=== PATIENT | female | born 1960 | race Caucasian/White ===

== ENCOUNTER → 2018-08-18 07:47 | Outpatient (CLI) | payer OTHER, SELFPAY ==
[2018-08-18 08:13] LABS: Add Manual Diff / Slide Review NO; Basophils Percent Auto 1.1 % (0-2); Eosinophils Percent Auto 0.8 % (2-4); Hematocrit 40.8 % (36-46); Lymphocytes Percent Auto 39.9 % (25-40); Mean Corpuscular HGB Conc 34.4 % (30-36); Mean Corpuscular Hemoglobin 30.4 PG (26-34); Mean Corpuscular Volume 88.3 fL (80-100); Monocytes Percent Auto 6.8 % (3-14); Neutrophils Absolute Auto 2800 /uL (3000-5900); Neutrophils Percent Auto 51.4 % (50-75); Platelet Count 192 X10^3/uL (150-400); Red Blood Cell Count 4.62 X10^6/uL (4.0-5.2); Red Cell Distribution Width 12.2 % (11.6-14.8); White Blood Cell Count 5.4 X10^3/uL (4.5-11.0)
[2018-08-18 08:41] LABS: Creatinine Urine Random 103.1 mg/dL
[2018-08-18 08:43] LABS: Hemoglobin A1C% w Est Avg Glu 5.5 % (4.0-6.0)
[2018-08-18 08:46] LABS: Microalbumi Creatinin Ratio Ur 27.1 ug/mg CR (<30); Microalbumin Urine Random 2.8 mg/dL (0-1.6)
[2018-08-18 08:48] LABS: Alanine Aminotransferase 37 IU/L (9-52); Albumin 4.6 g/dL (3.5-5.0); Albumin Globulin Ratio 1.5 (1.0-2.8); Alkaline Phosphatase 70 U/L (38-126); Aspartate Aminotransferase 34 IU/L (14-36); BUN Creatinine Ratio 17.5 (6-22); Bilirubin Total 0.4 mg/dL (0.2-1.3); Bilirubin Unconjugated 0.2 mg/dL (0.0-1.1); Blood Urea Nitrogen 14 mg/dL (7-17); Carbon Dioxide 27 mmol/L (22-32); Chloride 103 mmol/L (98-107); Cholesterol 179 mg/dL (140-199); Estimated Glomerular Filt Rate > 60.0 mL/min (>60); Glucose 120 mg/dL (70-100); HDL Cholesterol 35 mg/dL (40-60); HEMOLYSIS < 15 (0-50); LDL Cholesterol Calculated 70 mg/dL (<100); Potassium 4.6 mmol/L (3.4-5.1); Sodium 144 mmol/L (137-145); Total Protein 7.6 g/dL (6.3-8.2); Triglycerides 369 mg/dL (35-150)
== END ==
PROVIDERS: PCP Registered Nurse; Visit Provider Registered Nurse
DX: E78.2 Mixed hyperlipidemia (principal); I10 Essential (primary) hypertension; R74.8 Abnormal levels of other serum enzymes; E66.9 Obesity, unspecified
CPT/HCPCS: 36415; 80053; 80061; 80076; 82043; 82570; 83036; 85025

== ENCOUNTER → 2019-09-04 07:45 | Outpatient (CLI) | payer OTHER, SELFPAY ==
[2019-09-04 08:41] LABS: Alanine Aminotransferase 52 IU/L (<35); Albumin 4.7 g/dL (3.5-5.0); Albumin Globulin Ratio 1.5 (1.0-2.8); Alkaline Phosphatase 69 U/L (38-126); Aspartate Aminotransferase 46 IU/L (14-36); BUN Creatinine Ratio 23.8 (6-22); Bilirubin Total 0.5 mg/dL (0.2-1.3); Blood Urea Nitrogen 19 mg/dL (7-17); Calcium 9.5 mg/dL (8.4-10.2); Carbon Dioxide 27 mmol/L (22-32); Chloride 105 mmol/L (98-107); Cholesterol 208 mg/dL (140-199); Estimated Glomerular Filt Rate > 60.0 mL/min (>60); Globulin 3.1 g/dL (1.7-4.1); Glucose 130 mg/dL (80-110); HDL Cholesterol 41 mg/dL (40-60); HEMOLYSIS 24 (0-50); LDL Cholesterol Calculated 104 mg/dL (<100); Potassium 4.8 mmol/L (3.4-5.1); Sodium 140 mmol/L (137-145); Total Protein 7.8 g/dL (6.3-8.2); Triglycerides 315 mg/dL (35-150)
[2019-09-04 08:54] LABS: Add Manual Diff / Slide Review NO; Basophils Absolute Auto 0 /uL (0-100); Basophils Percent Auto 0.8 % (0-2); Eosinophils Absolute Auto 100 /uL (0-450); Hematocrit 40.5 % (36-46); Lymphocytes Absolute Auto 2000 /uL (1100-4500); Lymphocytes Percent Auto 37.1 % (25-40); Mean Corpuscular HGB Conc 34.4 % (30-36); Mean Corpuscular Hemoglobin 30.9 PG (26-34); Mean Corpuscular Volume 89.7 fL (80-100); Monocytes Absolute Auto 400 /uL (0-900); Monocytes Percent Auto 7.1 % (3-14); Neutrophils Absolute Auto 2900 /uL (1500-7000); Platelet Count 194 X10^3/uL (150-400); Red Blood Cell Count 4.52 X10^6/uL (4.0-5.2); Red Cell Distribution Width 12.1 % (11.6-14.8); White Blood Cell Count 5.4 X10^3/uL (4.5-11.0)
[2019-09-04 10:24] LABS: Creatinine Urine Random 115.6 mg/dL
[2019-09-04 10:28] LABS: Microalbumi Creatinin Ratio Ur 53.6 ug/mg CR (<30); Microalbumin Urine Random 6.2 mg/dL (0-1.6)
== END ==
PROVIDERS: PCP Registered Nurse; Visit Provider Nurse Practitioner Family
DX: E78.5 Hyperlipidemia, unspecified (principal); I10 Essential (primary) hypertension; K76.0 Fatty (change of) liver, not elsewhere classified; R74.8 Abnormal levels of other serum enzymes
CPT/HCPCS: 36415; 80053; 80061; 82043; 82570; 85025

== ENCOUNTER → 2019-09-29 12:21 | Outpatient (CLI) | payer OTHER, SELFPAY ==
[2019-09-29 12:53] LABS: Hemoglobin A1C% w Est Avg Glu 5.3 % (4.0-6.0)
== END ==
PROVIDERS: PCP Registered Nurse; Visit Provider Nurse Practitioner Family
DX: R73.01 Impaired fasting glucose (principal)
CPT/HCPCS: 36415; 83036

== ENCOUNTER → 2021-01-15 11:16 | Outpatient (CLI) | payer OTHER, SELFPAY ==
[2021-01-15] MEDS: COVID-19 VACC #1, MRNA(MOD) 100 MCG/0.5 ML VIAL IM (11:25)
== END ==
PROVIDERS: Visit Provider Internal Medicine
DX: Z23 Encounter for immunization (principal)
CPT/HCPCS: 0011A; 91301

== ENCOUNTER → 2021-02-12 11:06 | Outpatient (CLI) | payer OTHER, SELFPAY ==
[2021-02-12] MEDS: COVID-19 VACC #2, MRNA(MOD) 100 MCG/0.5 ML VIAL IM (11:13)
== END ==
PROVIDERS: Visit Provider Internal Medicine
DX: Z23 Encounter for immunization (principal)
CPT/HCPCS: 0012A; 91301

== ENCOUNTER → 2021-03-31 08:50 | Outpatient (CLI) | payer OTHER, SELFPAY ==
[2021-03-31 10:02] LABS: Hematocrit 40.2 % (36-46); Hemoglobin 13.6 g/dL (12.0-16.0); Mean Corpuscular HGB Conc 33.8 % (30-36); Mean Corpuscular Hemoglobin 30.4 PG (26-34); Mean Corpuscular Volume 90.1 fL (80-100); Platelet Count 186 X10^3/uL (150-400); Red Blood Cell Count 4.46 X10^6/uL (4.0-5.2); Red Cell Distribution Width 12.2 % (11.6-14.8); White Blood Cell Count 5.8 X10^3/uL (4.5-11.0)
[2021-03-31 10:03] LABS: Creatinine Urine Random 117.9 mg/dL
[2021-03-31 10:07] LABS: Microalbumi Creatinin Ratio Ur 89.9 ug/mg CR (<30); Microalbumin Urine Random 10.6 mg/dL (0-1.6)
[2021-03-31 10:48] LABS: Alanine Aminotransferase 52 IU/L (<35); Albumin 4.3 g/dL (3.5-5.0); Albumin Globulin Ratio 1.4 (1.0-2.8); Alkaline Phosphatase 69 U/L (38-126); Aspartate Aminotransferase 44 IU/L (14-36); BUN Creatinine Ratio 25.3 (6-22); Bilirubin Total 0.5 mg/dL (0.2-1.3); Blood Urea Nitrogen 19 mg/dL (7-17); Calcium 9.5 mg/dL (8.4-10.2); Carbon Dioxide 24 mmol/L (22-32); Chloride 107 mmol/L (98-107); Cholesterol 217 mg/dL (140-199); Estimated Glomerular Filt Rate > 60.0 mL/min (>60); Glucose 109 mg/dL (80-110); HDL Cholesterol 53 mg/dL (40-60); HEMOLYSIS < 15 (0-50); LDL Cholesterol Calculated 110 mg/dL (<100); Potassium 4.9 mmol/L (3.4-5.1); Sodium 140 mmol/L (137-145); Total Protein 7.3 g/dL (6.3-8.2); Triglycerides 271 mg/dL (35-150)
== END ==
PROVIDERS: PCP Nurse Practitioner Family; Referring Provider Nurse Practitioner Family; Visit Provider Nurse Practitioner Family
DX: E78.5 Hyperlipidemia, unspecified (principal); I10 Essential (primary) hypertension; J45.909 Unspecified asthma, uncomplicated
CPT/HCPCS: 36415; 80053; 80061; 82043; 82570; 85027

== ENCOUNTER → 2022-01-19 09:06 | Outpatient (CLI) | payer OTHER, SELFPAY ==
[2022-01-19 13:51] LABS: COVID19 -Nasal RAPID Negative (Negative)
== END ==
PROVIDERS: PCP Nurse Practitioner Family; Visit Provider Surgery
DX: Z01.812 Encounter for preprocedural laboratory examination (principal); Z20.822 Contact with and (suspected) exposure to COVID-19
CPT/HCPCS: 87635; C9803

== ENCOUNTER 2022-01-20 07:33 | Day surgery (SDC) | payer OTHER, SELFPAY ==
--- NOTE | 2022-01-20 | PATH_ITS ---
[facility] Accession Number: [id number] . 01 Material submitted: . PART A: splenic flexure - SPLENIC FLEXION POLYP PART B: colon - ASCENDING COLON POLYP PART C: cecum - CECAL POLYP PART D: colon - DISTAL ASCENDING POLYP . 02 Diagnosis: A. Splenic Flexure Polyp: Tubular adenoma. . B. Ascending Colon Polyp: Tubular adenoma. . C. Cecal Polyp: Superficial portion of colorectal mucosa with a benign lymphoid aggregate. Additional levels through the block are noncontributory. . D. Distal Ascending Polyp: Portion of tubular adenoma x1. Portion of serrated lesion x1, cannot completely exclude sessile serrated adenoma. MRV 01/23/2022 1353 Local . 02 Electronically signed: . Barb Avalos MD, Pathologist NPI- [id number] . 01 Gross description: . Part A: SPLENIC FLEXION POLYP: Received in formalin is 1 fragment(s) of kothari, soft tissue measuring 0.3 x 0.2 x 0.2 cm submitted entirely in 1 cassette(s) Part B: ASCENDING COLON POLYP: Received in formalin is 1 fragment(s) of kothari, soft tissue measuring 0.4 x 0.2 x 0.2 cm submitted entirely in 1 cassette(s) Part C: CECAL POLYP: Received in formalin is 1 fragment(s) of kothari, soft tissue measuring 0.2 x 0.2 x 0.2 cm submitted entirely in 1 cassette(s) Part D: DISTAL ASCENDING POLYP: Received in formalin are 2 fragment(s) of kothari, soft tissue measuring 0.2 x 0.1 x 0.1 cm to 0.2 x 0.1 x 0.1 cm submitted entirely in 1 cassette(s) /CPE 01/21/2022 0450 Local . 02 Pathologist provided ICD-10: Z12.11, K63.5 . 02 CPT . 812097, 866042, 088582, 828285 Specimen Comment: A courtesy copy of this report has been sent to [phone] Performed at: 01 [facility] [address] [place] [address] [id number] MD Mark Sue MD Phone: [phone] Performed at: 02 [facility] [id number] [place] [address] [id number] MD Nallely Pratt MD Phone: [phone]
--- NOTE | 2022-01-20 08:17 | P.HP_ITS ---
History of Present Illness History of Present Illness Date Patient Seen: 01/20/22 Time Patient Seen: 08:17 [place] [facility] [place]: colon cancer screening Last scope was 5 years ago. She has a strong family history with father and grandfather having colon cancer. Patient History Medical History Anal fissure (1990) Asthma Chicken pox Eczema (1989) Hayfever Hypertension Mumps Screening for malignant neoplasm of colon Surgical History Anesthesia History of rectal surgery (1990) History of tonsillectomy (1965) Family & Social History Family History Brother Age: 69 Hypertension High cholesterol Mother Hypertension High cholesterol Stroke Sister Age: 71 Hypertension High cholesterol Sister Age: 67 Hypertension High cholesterol Sister Age: 66 Hypertension High cholesterol Sister Age: 62 Hypertension High cholesterol Sister Age: 61 Hypertension High cholesterol Sister Age: 60 Hypertension High cholesterol Father Alzheimer's disease Brother No problems noted. Grandfather No problems noted. Grandmother No problems noted. Grandfather No problems noted. Grandmother No problems noted. Tobacco & Substance use: Smoking Status Former smoker alcohol intake current Meds Home Medications and Allergies Home Medications Medication Instructions Recorded Confirmed Type CA PANTOTHENATE/FOLIC ACID/VIT 1 tab PO Q DAY #0 08/23/12 02/26/21 History (MULTIVITAMIN) Fish Oil (#FISH OIL) 1 iu PO Q DAY #0 08/23/12 02/26/21 History albuterol sulfate 90 mcg/actuation 1 puff INH PRN #0 08/23/12 02/26/21 History aerosol inhaler (Proventil HFA) fluticasone propionate 44 2 puff INH QDAY #10.6 gm 08/23/12 02/26/21 History mcg/actuation HFA aerosol inhaler (Flovent HFA) aspirin 81 mg tablet,delayed 81 mg PO QDAY #0 09/17/17 02/26/21 History release fluticasone propionate 50 1 spray INTRANASAL #0 09/17/17 02/26/21 History mcg/actuation nasal spray,suspension scopolamine base 1 mg over 3 days 1 patch TRANSDERMAL Q3D PRN #4 each 03/17/18 02/26/21 Rx transdermal patch [Vitamin D3] PO Q DAY #0 06/28/18 02/26/21 History flaxseed oil 1,000 mg capsule 1,000 mg PO DAILY 02/26/21 02/26/21 History lisinopril 20 mg tablet (Prinivil) 20 mg PO QDAY #90 tab 02/26/21 02/26/21 Rx lovastatin 40 mg tablet 40 mg PO HS #90 tab 02/26/21 02/26/21 Rx triamcinolone acetonide 0.1 % 1 applic TOPICAL PRN #15 g 02/26/21 02/26/21 History topical cream sodium,potassium,mag sulfates 17.5 See Rx Instructions PO .COMPLEX 06/17/21 Rx gram-3.13 gram-1.6 gram oral soln #354 ml (Suprep Bowel Prep Kit) Allergies Allergy/AdvReac Type Severity Reaction Status Date / Time crab [CRAB] Allergy Severe THROAT Verified 01/20/22 08:22 SWELLING Review of Systems Review of Systems ROS: Yes All systems reviewed with the patient and are negative except as otherwise documented Exam Const General: cooperative and healthy appearing Nutritional Appearance: overweight Orientation: alert and oriented x3 HENMT Head: normal to inspection, normocephalic and atraumatic Eyes Sclera: sclerae normal Neck Neck: trachea midline Chest Chest: normal inspection of the chest Resp Effort & Inspection: normal respiratory effort and able to speak in complete sentences Cardio Rate: regular rate Rhythm: regular rhythm GI Palpation: soft Skin General: no rashes or lesions noted and atrophy Neuro General: patient alert and patient oriented x3 Cognition: normal cognition Extrem General: normal to inspection Psych Appearance: grossly normal Affect: normal affect Judgment: judgment good Assessment & Plan Assessment & Plan narrative: Family history of colon cancer Plan: Colonoscopy with moderate sedation COVID-19 COVID-19 status: Negative Time Spent With Patient Time with patient: less than 30 minutes Critical Care time: I spent a total of [] minutes of critical care time on this patient's care today; this time is exclusive of procedural time.
[2022-01-20] MEDS: LACTATED RINGERS 1,000 ML 84 ML IV (08:21)
[2022-01-20 08:24] VITALS: BMI 42.0
[2022-01-20 08:28] VITALS: BP 160/97; PULSE 86; RESP 16; TEMP 37.1; O2SAT 97
[2022-01-20] MEDS: MIDAZOLAM 5 MG/5 ML VIAL IV (08:37)
--- NOTE | 2022-01-20 08:37 | PM.OP.COLON ---
Operative Date/Time/Diagnoses Date of procedure: 01/20/22 Time of procedure: 08:37 Pre-op diagnosis: family history Post-op diagnosis: same Procedure & Clinicians Study performed: Colonoscopy with moderate sedation Same procedure as scheduled: Yes Indications: Family history colon cancer Surgeon: Rosemarie Lynch Procedure Notes SCOAP/Timeout: Done Procedure in detail: Preop diagnosis: Family history for colon cancer Postop diagnosis: Same Operative procedure: Colonoscopy with cold forceps polypectomy using moderate sedation Surgeon: Catina Lynch MD Findings: 4 polyps all under the size of 4 mm. One at splenic flexure, 2. Ascending colon 3. Cecal polyp 4. Distal ascending polyp Procedure: Patient placed in the lateral position. Rectal exam performed showing normal tone no masses. Colonoscope inserted into the rectum advanced to ileocecal valve with minimal difficulty. Insufflation extraction of the scope and the above findings. Retroflex was included in the rectum. Impression: 4 polyps all of the size of 4 mm. Plan is await pathology to determine repeat colonoscopy but will likely be 5 years. Plan: PACU for recovery repeat colonoscopy 3-5 years depending on pathology Scope withdrawal time: Thirteen Sedation minutes: 35 Findings: divertiulosis and polyp(s) (1. Splenic flexure 2. Ascending colon 3. Cecal polyp 4. Distal ascending) Complications: none Post-procedure Recommendations: Colonoscopy in 5 years Plan for aftercare: PACU for recovery Follow up: as needed Disposition: PACU
[2022-01-20] MEDS: fentaNYL 250 MCG/5 ML INJ IV (08:38)
[2022-01-20 09:12] VITALS: BP 122/74; PULSE 71; RESP 18; TEMP 36.7; O2SAT 97
[2022-01-20 09:17] VITALS: BP 110/81; PULSE 68; RESP 14; O2SAT 95
[2022-01-20 09:22] VITALS: BP 130/54; PULSE 81; RESP 14; O2SAT 97
== END 2022-01-20 09:42 | disposition home or self-care (01) ==
PROVIDERS: PCP Nurse Practitioner Family; Referring Provider Surgery; Visit Provider Surgery
PROC: 0DJD8ZZ Inspection of Lower Intestinal Tract, Via Natural or Artificial Opening Endoscopic (ICD-10-PCS; CPT 45378; principal; 2022-01-20 08:30)
DX: Z12.11 Encounter for screening for malignant neoplasm of colon (principal); Z80.0 Family history of malignant neoplasm of digestive organs; I10 Essential (primary) hypertension; D12.2 Benign neoplasm of ascending colon; D12.3 Benign neoplasm of transverse colon
CPT/HCPCS: 45380; 99152; 99153; J2250; J3010

== ENCOUNTER → 2022-01-23 08:30 | Outpatient (CLI) | payer OTHER, SELFPAY ==
--- NOTE | 2022-01-23 08:34 | DI.RAD.S_ITS ---
PROCEDURE: XR KNEE RT 3V INDICATIONS: pain TECHNIQUE: 3 views of the knee were acquired. COMPARISON: None. FINDINGS: Bones: No fractures or dislocations. Moderate arthrosis of the medial patellofemoral compartments with joint space loss, sclerosis of the opposing articular surfaces, and osteophytosis. Preservation of the lateral compartment with periarticular osteophytosis. Soft tissues: No joint effusion. No suspicious soft tissue calcifications. IMPRESSION: Moderate arthrosis of the knee as detailed above. Dictated by: Mart Lopes M.D. on 01/23/2022 at 9:32 Approved by: Mart Lopes M.D. on 01/23/2022 at 9:33
[2022-01-23 09:36] LABS: Hematocrit 40.1 % (36-46); Hemoglobin 13.8 g/dL (12.0-16.0); Mean Corpuscular HGB Conc 34.4 % (30-36); Mean Corpuscular Hemoglobin 30.3 PG (26-34); Mean Corpuscular Volume 87.9 fL (80-100); Platelet Count 158 X10^3/uL (150-400); Red Blood Cell Count 4.56 X10^6/uL (4.0-5.2); White Blood Cell Count 4.2 X10^3/uL (4.5-11.0)
[2022-01-23 09:52] LABS: Alanine Aminotransferase 91 IU/L (<35); Albumin 4.6 g/dL (3.5-5.0); Albumin Globulin Ratio 1.5 (1.0-2.8); Alkaline Phosphatase 62 U/L (38-126); Aspartate Aminotransferase 66 IU/L (14-36); BUN Creatinine Ratio 16.7 (6-22); Bilirubin Total 0.6 mg/dL (0.2-1.3); Blood Urea Nitrogen 13 mg/dL (7-17); Calcium 9.2 mg/dL (8.4-10.2); Carbon Dioxide 28 mmol/L (22-32); Chloride 107 mmol/L (98-107); Cholesterol 174 mg/dL (140-199); Estimated Glomerular Filt Rate > 60.0 mL/min (>60); Globulin 3.1 g/dL (1.7-4.1); Glucose 112 mg/dL (80-110); HDL Cholesterol 44 mg/dL (40-60); HEMOLYSIS < 15 (0-50); LDL Cholesterol Calculated 99 mg/dL (<100); Potassium 4.7 mmol/L (3.4-5.1); Sodium 143 mmol/L (137-145); Total Protein 7.7 g/dL (6.3-8.2); Triglycerides 157 mg/dL (35-150)
== END ==
PROVIDERS: PCP Nurse Practitioner Family; Referring Provider Nurse Practitioner Family; Visit Provider Nurse Practitioner Family
DX: M17.11 Unilateral primary osteoarthritis, right knee (principal); E78.5 Hyperlipidemia, unspecified; I10 Essential (primary) hypertension; K76.0 Fatty (change of) liver, not elsewhere classified; M25.561 Pain in right knee
CPT/HCPCS: 36415; 73562; 80053; 80061; 85027

== ENCOUNTER → 2022-10-26 11:56 | Outpatient (CLI) | payer OTHER, SELFPAY ==
--- NOTE | 2022-10-26 12:19 | DI.RAD.S_ITS ---
PROCEDURE: XR CHEST 2V INDICATIONS: Cough TECHNIQUE: 2 views of the chest were acquired. COMPARISON: None. FINDINGS: Surgical changes and devices: None. Lungs and pleura: Lungs are clear. No pleural effusions or pneumothorax. Mediastinum: Mediastinal contours are normal. Heart size is normal. Bones and chest wall: No suspicious bony abnormalities. Soft tissues appear unremarkable. IMPRESSION: No acute cardiopulmonary process demonstrated radiographically. Dictated by: Nicolas Baca M.D. on 10/26/2022 at 13:42 Approved by: Nicolas Baca M.D. on 10/26/2022 at 13:42
[2022-10-26 12:49] LABS: Influenza A - CEPHEID Flu A NEGATIVE (NEGATIVE); Influenza B - CEPHEID Flu B NEGATIVE (NEGATIVE); Respiratory Syncytial Virus Negative (Negative)
[2022-10-26 12:55] LABS: COVID-19 CEPHEID 4-PLEX PCR Negative (Negative)
== END ==
PROVIDERS: PCP Nurse Practitioner; Referring Provider Nurse Practitioner Family; Visit Provider Nurse Practitioner Family
DX: R05.1 Acute cough (principal); R05.9 Cough, unspecified; Z20.822 Contact with and (suspected) exposure to COVID-19
CPT/HCPCS: 0241U; 71046

== ENCOUNTER → 2023-02-23 07:49 | Outpatient (CLI) | payer OTHER, SELFPAY ==
[2023-02-23 08:53] LABS: Add Manual Diff / Slide Review NO; Basophils Absolute Auto 0 /uL (0-100); Basophils Percent Auto 0.7 % (0-2); Eosinophils Absolute Auto 100 /uL (0-450); Eosinophils Percent Auto 2.1 % (2-4); Hematocrit 40.6 % (36-46); Hemoglobin 14.2 g/dL (12.0-16.0); Lymphocytes Absolute Auto 1800 /uL (1100-4500); Lymphocytes Percent Auto 32.4 % (25-40); Mean Corpuscular Hemoglobin 30.7 PG (26-34); Mean Corpuscular Volume 87.8 fL (80-100); Monocytes Absolute Auto 400 /uL (0-900); Monocytes Percent Auto 7.2 % (3-14); Neutrophils Absolute Auto 3300 /uL (1500-7000); Neutrophils Percent Auto 57.6 % (50-75); Platelet Count 180 X10^3/uL (150-400); Red Blood Cell Count 4.63 X10^6/uL (4.0-5.2); Red Cell Distribution Width 12.5 % (11.6-14.8); White Blood Cell Count 5.6 X10^3/uL (4.5-11.0)
[2023-02-23 10:34] LABS: Alanine Aminotransferase 59 IU/L (<35); Albumin 4.4 g/dL (3.5-5.0); Albumin Globulin Ratio 1.5 (1.0-2.8); Alkaline Phosphatase 71 U/L (38-126); Aspartate Aminotransferase 43 IU/L (14-36); BUN Creatinine Ratio 24.6 (6-22); Bilirubin Total 0.6 mg/dL (0.2-1.3); Blood Urea Nitrogen 17 mg/dL (7-17); Calcium 9.1 mg/dL (8.4-10.2); Carbon Dioxide 27 mmol/L (22-32); Chloride 102 mmol/L (98-107); Cholesterol 205 mg/dL (140-199); Estimated Glomerular Filt Rate > 60 mL/min (>60); Globulin 2.9 g/dL (1.7-4.1); Glucose 113 mg/dL (80-110); HDL Cholesterol 49 mg/dL (40-60); HEMOLYSIS < 15 (0-50); LDL Cholesterol Calculated 105 mg/dL (<100); Potassium 4.8 mmol/L (3.4-5.1); Sodium 137 mmol/L (137-145); Total Protein 7.3 g/dL (6.3-8.2); Triglycerides 256 mg/dL (35-150)
[2023-02-23 10:50] LABS: Free T4, Direct Thyroxine 1.02 ng/dL (0.78-2.19)
[2023-02-23 11:03] LABS: Thyroid Stimulating Hormone 2.04 uIU/mL (0.47-4.68)
[2023-02-23 17:57] LABS: Creatinine Urine Random 112.5 mg/dL; Microalbumi Creatinin Ratio Ur 151.1 ug/mg CR (<30)
[2023-02-23 20:03] LABS: HIV 1 & 2 Ab/Ag 4th Gen Combo NEGATIVE (NEGATIVE)
== END ==
PROVIDERS: PCP Nurse Practitioner; Referring Provider Nurse Practitioner; Visit Provider Nurse Practitioner
DX: Z00.00 Encounter for general adult medical examination without abnormal findings (principal)
CPT/HCPCS: 36415; 80053; 80061; 82043; 82570; 84439; 84443; 84481; 85025; 87389

== ENCOUNTER 2023-05-09 09:28 | Day surgery (SDC) | payer OTHER, SELFPAY ==
[2023-05-09 09:33] VITALS: BP 215/107; PULSE 70; RESP 18; TEMP 36.7; O2SAT 98
--- NOTE | 2023-05-09 09:34 | DI.RAD.S_ITS ---
Maude [facility] TORREEDURE: XR SOFT TISSUE NECK INDICATIONS: fish bone TECHNIQUE: 2 views of the neck were acquired. COMPARISON: None. FINDINGS: Airway: The airway appears patent. Soft tissues: Prevertebral soft tissues are normal in thickness. The epiglottis and aryepiglottic folds appear normal. No soft tissue gas. Bones: No suspicious bony lesions. Visualized cervical spine is normally aligned. IMPRESSION: No radiopaque foreign body Dictated by: David Kumar M.D. on 05/09/2023 at 10:16 Approved by: David Kumar M.D. on 05/09/2023 at 10:16
--- NOTE | 2023-05-09 09:37 | ED.NECK ---
HPI - Neck Pain/Injury General Chief Complaint: Skin/Abscess/Foreign Body Stated Complaint: fishbone in throat Time Seen by Provider: 05/09/23 09:33 Mode of arrival: Ambulatory History of Present Illness HPI Narrative: Patient 62-year-old female history of hyperlipidemia hypertension presenting today with fish bone stuck in her throat. She reports that she ate cod facial last night for dinner. She thought it got stuck last night she ate some bread she got maybe it was scratched however this morning she feels like it is in the right side. No difficulty swallowing liquids or solids. She is able to eat and drink she did so this morning. No other complaints. Related Data Home Medications Medication Instructions Recorded Confirmed CA PANTOTHENATE/FOLIC ACID/VIT 1 tab PO Q DAY ##0 08/23/12 11/16/22 (MULTIVITAMIN) Fish Oil (#FISH OIL) 1 iu PO Q DAY ##0 08/23/12 11/16/22 fluticasone propionate 44 2 puff INH QDAY ##10.6 08/23/12 11/16/22 mcg/actuation HFA aerosol inhaler (Flovent HFA) aspirin 81 mg tablet,delayed 81 mg PO QDAY ##0 09/17/17 11/16/22 release fluticasone propionate 50 1 spray intranasal ##0 09/17/17 11/16/22 mcg/actuation nasal spray,suspension [Vitamin D3] PO Q DAY ##0 06/28/18 11/16/22 flaxseed oil 1,000 mg capsule 1,000 mg PO DAILY 02/26/21 11/16/22 Previous Rx's Medication Instructions Recorded scopolamine base 1 mg over 3 days 1 patch transdermal Q3D PRN motion 03/17/18 transdermal patch sickness #4 ea albuterol sulfate 90 mcg/actuation 2 puff inhalation Q4-6H SOB, 11/16/22 aerosol inhaler (Proventil HFA) wheezing or cough #6.7 grams lovastatin 40 mg tablet See Rx Instructions .Route 11/16/22 .COMPLEX #90 tabs meloxicam 15 mg tablet 15 mg PO DAILY #90 tabs 11/16/22 triamcinolone acetonide 0.1 % 1 applic topical BID PRN eczema 11/16/22 topical cream outbreak #15 grams lisinopril 20 mg tablet See Rx Instructions .Route 03/29/23 .COMPLEX #90 tabs semaglutide 0.25 mg or 0.5 mg (2 0.25 mg (0.4 mL) SUBCUT QWEEK #3 mL 05/04/23 mg/3 mL) subcutaneous pen injector Allergies Allergy/AdvReac Type Severity Reaction Status Date / Time crab [CRAB] Allergy Severe THROAT Verified 05/09/23 11:11 SWELLING Review of Systems Review of Systems ROS Unobtainable: All systems reviewed & are unremarkable except as noted in HPI and below Patient History Medical History Anal fissure (1990) Asthma Chicken pox Eczema (1989) Hayfever Hypertension Microalbuminuria Mumps Surgical History Anesthesia History of rectal surgery (1990) History of tonsillectomy (1965) Family History Brother Age: 70 Hypertension High cholesterol Mother Hypertension High cholesterol Stroke Sister Age: 72 Hypertension High cholesterol Sister Age: 68 Hypertension High cholesterol Sister Age: 67 Hypertension High cholesterol Sister Age: 63 Hypertension High cholesterol Sister Age: 62 Hypertension High cholesterol Sister Age: 61 Hypertension High cholesterol Father Alzheimer's disease Brother No problems noted. Grandfather No problems noted. Grandmother No problems noted. Grandfather No problems noted. Grandmother No problems noted. Social History household members: spouse Smoking Status: Former smoker second hand exposure: No alcohol intake: current substance use type: does not use Smoking Status: Former smoker alcohol intake frequency: 3 or more drinks per day Substance Use Type: does not use Exam Initial Vital Signs Initial Vital Signs: Vital Signs Temperature 98.1 F 05/09/23 09:33 Pulse Rate 70 05/09/23 09:33 Respiratory Rate 18 05/09/23 09:33 Blood Pressure 215/107 H 05/09/23 09:33 Pulse Oximetry 98 05/09/23 09:33 Oxygen Delivery Method Room Air 05/09/23 09:33 GENERAL: Well-appearing 62-year-old female HEENT: Head atraumatic,EOMI, pupils reactive, CARDIOVASCULAR: Regular rate and rhythm without murmurs, rubs or gallops. RESPIRATORY: Breath sounds equal bilaterally, no wheezes rales or rhonchi. Managing own secretions EXTREMITIES: Normal range of motion, no clubbing or edema. Neurovascularly intact NEUROLOGICAL: Alert and oriented x4.Normal gait and speech. SKIN: Warm, dry, no laceration, no petechiae, no rashes or lesions. Course Orders Ordered: ED Orders 05/09/23 09:34 XR soft tissue neck Stat Lactated Ringer's (Lactated Ringers) 1,000 mls @ 150 mls/hr IV CONT RAY Last Admin: 05/09/23 11:11 Dose: 150 mls/hr Documented By: CG Vital Signs Vital signs: Vital Signs - 8 hr 05/09/23 09:33 Temperature 98.1 F Pulse Rate 70 Respiratory Rate 18 Blood Pressure 215/107 H Pulse Oximetry 98 Oxygen Delivery Method Room Air MDM - Neck Pain/Injury Lab Data Labs: Point of Care Testing Test Results Not applicable Imaging Data Extremity x-ray #1: Radiologist's Impression: P.? ROCEDURE:? XR SOFT TISSUE NECK ? INDICATIONS:? fish bone ? TECHNIQUE:? 2 views of the neck were acquired.? ? COMPARISON:? None. ? FINDINGS:? ? Airway:? The airway appears patent.? ? Soft tissues:? Prevertebral soft tissues are normal in thickness.? The epiglottis and aryepiglottic folds appear normal.? No soft tissue gas.? ? Bones:? No suspicious bony lesions.? Visualized cervical spine is normally aligned.? ? IMPRESSION:? No radiopaque foreign body ? ? Dictated by: David Kumar M.D. on 05/09/2023 at 10:16 ?? [facility] Narrative Medical decision making narrative: Patient 62-year-old female high suspicion for fish bone in pharynx not seen on x-ray but patient can feel it. No evidence of airway obstruction or perforation. Dr. Berumen surgery consulted agrees with EGD. Discharge Plan Departure Patient Disposition: Admitted to Surgery Clinical Impression: 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 Admit Date/Time: 05/09/23 10:54 Admit Provider: Barak Berumen
--- NOTE | 2023-05-09 09:40 | PC.NURSE ---
pt states fish bone caught in back of throat
--- NOTE | 2023-05-09 10:48 | PM.HP.1 ---
History of Present Illness History of Present Illness Date Patient Seen: 05/09/23 Time Patient Seen: 10:49 Chief complaint: fishbone in throat Narrative: 62-year-old woman with a possible fishbone stuck in her throat. Consumed fish yesterday has sensation a bone is stuck in her upper esophagus. No foreign body visualized non soft tissue x-ray of neck. [facility] Medical History Anal fissure (1990) Asthma Chicken pox Eczema (1989) Hayfever Hypertension Microalbuminuria Mumps Surgical History Anesthesia History of rectal surgery (1990) History of tonsillectomy (1965) Family History Brother Age: 70 Hypertension High cholesterol Mother Hypertension High cholesterol Stroke Sister Age: 72 Hypertension High cholesterol Sister Age: 68 Hypertension High cholesterol Sister Age: 67 Hypertension High cholesterol Sister Age: 63 Hypertension High cholesterol Sister Age: 62 Hypertension High cholesterol Sister Age: 61 Hypertension High cholesterol Father Alzheimer's disease Brother No problems noted. Grandfather No problems noted. Grandmother No problems noted. Grandfather No problems noted. Grandmother No problems noted. Social History household members: spouse Smoking Status: Former smoker second hand exposure: No alcohol intake: current substance use type: does not use Meds Home Medications and Allergies Home Medications Medication Instructions Recorded Confirmed Type CA PANTOTHENATE/FOLIC ACID/VIT 1 tab PO Q DAY ##0 08/23/12 11/16/22 History (MULTIVITAMIN) Fish Oil (#FISH OIL) 1 iu PO Q DAY ##0 08/23/12 11/16/22 History fluticasone propionate 44 2 puff INH QDAY ##10.6 08/23/12 11/16/22 History mcg/actuation HFA aerosol inhaler (Flovent HFA) aspirin 81 mg tablet,delayed 81 mg PO QDAY ##0 09/17/17 11/16/22 History release fluticasone propionate 50 1 spray intranasal ##0 09/17/17 11/16/22 History mcg/actuation nasal spray,suspension scopolamine base 1 mg over 3 days 1 patch transdermal Q3D PRN motion 03/17/18 11/16/22 Rx transdermal patch sickness #4 ea [Vitamin D3] PO Q DAY ##0 06/28/18 11/16/22 History flaxseed oil 1,000 mg capsule 1,000 mg PO DAILY 02/26/21 11/16/22 History albuterol sulfate 90 mcg/actuation 2 puff inhalation Q4-6H SOB, 11/16/22 11/16/22 Rx aerosol inhaler (Proventil HFA) wheezing or cough #6.7 grams lovastatin 40 mg tablet See Rx Instructions .Route 11/16/22 11/16/22 Rx .COMPLEX #90 tabs meloxicam 15 mg tablet 15 mg PO DAILY #90 tabs 11/16/22 11/16/22 Rx triamcinolone acetonide 0.1 % 1 applic topical BID PRN eczema 11/16/22 11/16/22 Rx topical cream outbreak #15 grams lisinopril 20 mg tablet See Rx Instructions .Route 03/29/23 Rx .COMPLEX #90 tabs semaglutide 0.25 mg or 0.5 mg (2 0.25 mg (0.4 mL) SUBCUT QWEEK #3 mL 05/04/23 Rx mg/3 mL) subcutaneous pen injector Allergies Allergy/AdvReac Type Severity Reaction Status Date / Time crab [CRAB] Allergy Severe THROAT Verified 11/16/22 09:58 SWELLING Exam Vital Signs (past 8 hours): - 05/09/23 09:33 Temperature 98.1 F Pulse Rate 70 Respiratory Rate 18 Blood Pressure 215/107 H Pulse Oximetry 98 Oxygen Delivery Method Room Air Oxygen Delivery Method Room Air Narrative Exam Narrative: General adult woman alert oriented no acute distress Chest nonlabored respiration Abdomen soft nontender nondistended Assessment & Plan Assessment and plan (1) 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: Status: Acute Assessment & Plan narrative: 62-year-old woman with morbid obesity and asthma with a possible fishbone in pharynx. Will proceed with esophagoduodenoscopy for evaluation and possible removal. I explained to them that frequently the bone is not identified/retrieved. Commonly the bone has past but it has left the mucosa irritated giving the sensation that something is present. Other times the bone is extremely small and translucent making it difficult to identify. Regardless it is worthwhile making an attempt to prevent future complications. Overview of the procedure was discussed. Procedural risks including bleeding, failure to identify a remove the object, intestinal injury were discussed. Questions have been answered and they are in agreement with this plan.
[2023-05-09 11:01] VITALS: BP 184/107; PULSE 68; RESP 16; TEMP 37; O2SAT 96
[2023-05-09] MEDS: LACTATED RINGERS 1,000 ML 150 ML IV (11:11)
--- NOTE | 2023-05-09 11:26 | P.OP.EGD_ITS ---
Operative Date/Time/Diagnoses Date of procedure: 05/09/23 Time of procedure: 11:26 Pre-op diagnosis: Esophageal foreign body Post-op diagnosis: same Procedure & Clinicians Study performed: Esophagoduodenoscopy Same procedure as scheduled: Yes Indications: Possible fish bone in throat Surgeon: Barak Berumen Procedure Notes Procedure in detail: The history and physical was performed/updated and the patient is ASA class is 3. The procedure was discussed in detail with the patient. Potential risks complications including infection, bleeding, missed diagnosis, perforation, need for surgery, and were explained. Their questions were answered and informed consent was obtained. Patient placed in left lateral decubitus position. Time out was performed. Procedural sedation was administered by Anesthesia. A bite block was placed. t he scope was inserted into the mouth and advanced through the esophagus and into the stomach. The stomach was without masses, ulcers or gastritis.The scope was then drawn back into the proximal esophagus and pharynx. A thorough evaluation was made there was a small linear abrasion in the pharynx but no foreign body was identified. Stomach was desufflated and scope removed. The patient tolerated the procedure well and will be discharged when they meet criteria. Specimen(s): none sent Complications: none Impression: abrasion to pharynx Post-procedure Plan for aftercare: Soft diet for the next 24 hours Disposition: same day surgery
[2023-05-09 11:49] VITALS: BP 137/95; PULSE 72; RESP 13; TEMP 36.7; O2SAT 95
[2023-05-09 11:53] VITALS: BP 151/91; PULSE 75; RESP 17; O2SAT 97
[2023-05-09 12:00] VITALS: BP 138/83; PULSE 67; RESP 11; O2SAT 95
== END 2023-05-09 12:07 | disposition home or self-care (01) ==
LOC: ED 10:37 → AC 11:21 → OR 05-12 13:40
PROVIDERS: Emergency Provider Emergency Medicine; PCP Nurse Practitioner; Referring Provider Emergency Medicine; Visit Provider Surgery
PROC: 0DJ08ZZ Inspection of Upper Intestinal Tract, Via Natural or Artificial Opening Endoscopic (ICD-10-PCS; CPT 43235; principal; 2023-05-09 11:15)
DX: T17.228A Food in pharynx causing other injury, initial encounter (principal); S27.818A Other injury of esophagus (thoracic part), initial encounter; E66.01 Morbid (severe) obesity due to excess calories; J45.909 Unspecified asthma, uncomplicated
CPT/HCPCS: 43235; 70360; 99283; J0330; J1100; J2405; J2704; J3010

== ENCOUNTER → 2023-06-24 09:28 | Outpatient (CLI) | payer OTHER, SELFPAY ==
--- NOTE | 2023-06-24 09:29 | DI.ECHO.S_ITS ---
[facility] +---------+ : : [address] [place] : : : : [id number] : : : : Phone: [phone]+ Echocardiogram Report + + :Name: VADIM FOLEY Study Date: 06/24/2023 Height: 72 in : :[facility] ReadingLocation: Weight: 320 lb : : Gender: Female BSA: 2.6 m2 : :: 1960 Age: 63 yrs BP: 164/108 mmHg: :Reason For Study: Hypertension : :Ordering Physician: CORY, : :DALE Performed By: Nori Woodard : :Referring: DALE RAY : + + Interpretation Summary Normal sinus rhythm. Normal LV size; mild concentric LVH; normal wall motion and LV systolic function. EF is 60-65%. Normal chamber sizes. Aortic sclerosis without stenosis. Mildly dilated ascending aorta measuring 4.1 cm in diameter. No prior study available for comparison. Procedure: A two-dimensional transthoracic echocardiogram with color flow and Doppler was performed. The study quality was technically adequate. There is no prior echocardiogram noted for this patient. The patient was in normal sinus rhythm during the exam. Left Ventricle: The left ventricle is normal in size. Left ventricular wall thickness is mildly increased. The ejection fraction is estimated to be 60- 65%. Diastolic parameters suggest a relaxation abnormality of the left ventricle, consistent with probable normal filling pressures. Right Ventricle: The right ventricle is borderline dilated. The right ventricular systolic function is normal. Atria: The left atrial size is normal. Right atrial size is normal. There is no Doppler evidence for an interatrial shunt. Mitral Valve: The mitral valve is normal. There is mild mitral annular calcification. There is no mitral valve stenosis. There is trace mitral regurgitation. Aortic Valve: The aortic valve is trileaflet. The aortic valve opens well. There is no aortic valve stenosis. No aortic regurgitation is present. Tricuspid Valve: The tricuspid valve is normal. There is no tricuspid stenosis. There is trace tricuspid regurgitation. Pulmonary artery pressures cannot be estimated because of the lack of a measurable TR jet velocity. Pulmonic Valve: The pulmonic valve is not well visualized. There is no pulmonic valvular stenosis. There is no pulmonic valvular regurgitation. Great Vessels: The aortic root is normal size. The ascending aorta is mildly enlarged. The pulmonary artery is normal size. The inferior vena cava was not visualized. Pericardium/ Pleura There is a trivial pericardial effusion noted. There is no pleural effusion. MMode/2D Measurements & Calculations LVIDd: 4.9 cm LVOT diam: 2.1 cm LVIDs: 3.2 cm Ao root diam: 3.5 cm FS: 34.7 % asc Aorta Diam: 4.1 cm IVSd: 1.3 cm LVPWd: 1.0 cm LV manjarrez. diameter/BSA (cm/m^2): 1.9 LV sys. diameter/BSA (cm/m^2): 1.2 LA A2 area: 21.3 cm2 RA long axis: 5.5 cm LA A4 area: 20.1 cm2 RA area: 18.1 cm2 LA length (vol): 5.9 cm RA vol: 50.4 ml LA vol: 61.5 ml RA : 19.4 ml/m2 LA vol index: 23.6 ml/m2 RVD1 (basal): 4.0 cm LVLs ap4: 6.2 cm LVLd ap2: 7.5 cm TAPSE_phl: 2.9 cm LVLs ap2: 6.1 cm Doppler Measurements & Calculations Ao V2 max: 179.3 cm/sec LVOT Max Donal: 111.7 cm/sec Ao V2 mean: 121.0 cm/sec LV V1 max P.0 mmHg Ao max P.0 mmHg LV V1 VTI: 23.3 cm Ao mean P.8 mmHg BRIAN(I,D): 2.1 cm2 Ao V2 VTI: 37.6 cm BRIAN(V,D): 2.2 cm2 sev ratio: 0.62 BRIAN indexed to BSA (cm^2/m^2): 0.82 MV E max donal: 79.0 cm/sec PA V2 max: 105.0 cm/sec MV A max donal: 98.2 cm/sec PA V2 mean: 74.4 cm/sec MV E/A: 0.80 PA mean P.0 mmHg Med Peak E' Donal: 9.3 cm/sec PA pr(Accel): 43.5 mmHg E/E' med: 8.5 Lat Peak E' Donal: 7.7 cm/sec E/E' lat: 10.3 E/e' average: 9.4 MV dec time: 0.24 sec SV(LVOT): 80.6 ml AV VR_phl: 0.63 BRIAN(VTI)/BSA_phl: 0.82 Electronically signed by: Lidia Melendez M.D. on Reading Physician:06/25/2023 01:37 AM
== END ==
PROVIDERS: PCP Nurse Practitioner; Referring Provider Nurse Practitioner; Visit Provider Nurse Practitioner
DX: I10 Essential (primary) hypertension (principal); I34.81 Nonrheumatic mitral (valve) annulus calcification; I77.89 Other specified disorders of arteries and arterioles
CPT/HCPCS: 93306

== ENCOUNTER → 2023-07-12 | Outpatient (CLI) | payer OTHER, SELFPAY ==
--- NOTE | 2023-07-12 11:20 | DI.RAD.S_ITS ---
Bone Density Report Name: AGUSTIN FOLEY Age: 63 Sex: Female Ethnicity: White Date of : 1960 Indication: postmenopausal; screening for osteoporosis; Referring Provider: AUSTIN OCONNOR Study: Bone densitometry was performed. Exam Date: July 12, 2023 Accession number: [id number] Bone Density: Region BMD T-score Z-score Classification AP Spine(L1, L2, L3) 1.046 0.3 1.9 Normal Femoral Neck (Left) 0.821 -0.2 1.2 Normal Total Hip (Left) 1.149 1.7 2.9 Normal Femoral Neck (Right) 0.919 0.6 2.1 Normal Total Hip (Right) 1.180 2.0 3.1 Normal Total Hip Mean 1.165 1.9 3.0 Normal World Health Organization criteria for BMD impression classify patients as: Normal (T-score at or above -1.0), Osteopenia (T-score between -1.0 and -2.5), or Osteoporosis (T-score at or below -2.5). 10-year Fracture Risk: FRAX not reported because: All T-scores for Spine Total, Hip Total, Femoral Neck at or above -1.0 Impression: The patient has normal bone mass. Discussion: BONE DENSITY IS ABOVE THE MINIMUM DESIRABLE LEVEL AT ALL SKELETAL SITES TESTED. This patient's bone mineral density is above the minimum desirable level (T-score -1.0 or better) at all sites measured. The patient should follow a healthful lifestyle (good nutrition with adequate calcium and vitamin D, and appropriate weight-bearing exercise). Follow-Up: Consider repeating this study in 5 years or sooner if there is some new clinical indication. Reported by: RAOUL EDUARDO M.D. on 07/12/2023 11:45:00 AM.
== END ==
LOC: RAD 11:19
PROVIDERS: PCP Nurse Practitioner; Referring Provider Family Medicine; Visit Provider Family Medicine
DX: Z13.820 Encounter for screening for osteoporosis (principal); Z78.0 Asymptomatic menopausal state
CPT/HCPCS: 77080

== ENCOUNTER → 2023-08-17 07:09 | Outpatient (CLI) | payer OTHER, SELFPAY ==
[2023-08-17 08:29] LABS: Alanine Aminotransferase 76 IU/L (<35); Albumin 4.4 g/dL (3.5-5.0); Albumin Globulin Ratio 1.5 (1.0-2.8); Alkaline Phosphatase 59 U/L (38-126); Aspartate Aminotransferase 51 IU/L (14-36); BUN Creatinine Ratio 32.4 (6-22); Bilirubin Total 0.6 mg/dL (0.2-1.3); Blood Urea Nitrogen 23 mg/dL (7-17); Calcium 9.7 mg/dL (8.4-10.2); Carbon Dioxide 26 mmol/L (22-32); Chloride 103 mmol/L (98-107); Estimated Glomerular Filt Rate > 60 mL/min (>60); Globulin 2.9 g/dL (1.7-4.1); Glucose 103 mg/dL (80-110); HEMOLYSIS < 15 (0-50); Potassium 5.1 mmol/L (3.4-5.1); Sodium 137 mmol/L (137-145); Total Protein 7.3 g/dL (6.3-8.2)
[2023-08-17 08:31] LABS: Hemoglobin A1C% w Est Avg Glu 5.4 % (4.0-6.0)
[2023-08-17 10:48] LABS: Creatinine Urine Random 107.9 mg/dL
[2023-08-17 10:51] LABS: Microalbumi Creatinin Ratio Ur 80.6 ug/mg CR (<30); Microalbumin Urine Random 8.7 mg/dL (0-1.6)
== END ==
PROVIDERS: Family Medicine; PCP Nurse Practitioner; Referring Provider Nurse Practitioner; Visit Provider Nurse Practitioner
DX: K76.0 Fatty (change of) liver, not elsewhere classified (principal); E66.9 Obesity, unspecified; R80.9 Proteinuria, unspecified; R73.09 Other abnormal glucose
CPT/HCPCS: 36415; 80053; 82043; 82570; 83036

== ENCOUNTER → 2023-12-29 08:48 | Outpatient (CLI) | payer OTHER, SELFPAY | PROVIDERS: PCP Nurse Practitioner; Referring Provider Nurse Practitioner; Visit Provider Nurse Practitioner | DX: Z00.00 Encounter for general adult medical examination without abnormal findings (principal); I10 Essential (primary) hypertension | CPT/HCPCS: 93005; 93010 ==

== ENCOUNTER → 2024-10-03 07:04 | Outpatient (CLI) | payer OTHER, SELFPAY ==
[2024-10-03 08:26] LABS: Hemoglobin A1C% w Est Avg Glu 5.1 % (4.0-6.0)
[2024-10-03 08:27] LABS: Alanine Aminotransferase 36 IU/L (<35); Albumin 4.3 g/dL (3.5-5.0); Albumin Globulin Ratio 1.7 (1.0-2.8); Alkaline Phosphatase 69 U/L (38-126); Aspartate Aminotransferase 36 IU/L (14-36); BUN Creatinine Ratio 24.1 (6-22); Bilirubin Total 0.7 mg/dL (0.2-1.3); Blood Urea Nitrogen 19 mg/dL (7-17); Calcium 9.2 mg/dL (8.4-10.2); Carbon Dioxide 26 mmol/L (22-32); Chloride 107 mmol/L (98-107); Cholesterol 202 mg/dL (140-199); Estimated Glomerular Filt Rate > 60 mL/min (>60); Globulin 2.6 g/dL (1.7-4.1); Glucose 101 mg/dL (80-110); HDL Cholesterol 47 mg/dL (40-60); HEMOLYSIS < 15 (0-50); LDL Cholesterol Calculated 94 mg/dL (<100); Potassium 4.7 mmol/L (3.4-5.1); Sodium 138 mmol/L (137-145); Total Protein 6.9 g/dL (6.3-8.2); Triglycerides 307 mg/dL (35-150)
== END ==
PROVIDERS: PCP Student in an Organized Health Care Education/Training Program; Referring Provider Student in an Organized Health Care Education/Training Program; Visit Provider Student in an Organized Health Care Education/Training Program
DX: E78.5 Hyperlipidemia, unspecified (principal); I10 Essential (primary) hypertension; E66.9 Obesity, unspecified
CPT/HCPCS: 36415; 80053; 80061; 83036

== ENCOUNTER → 2024-10-05 08:56 | Outpatient (CLI) | payer OTHER, SELFPAY ==
[2024-10-05 09:49] LABS: Creatinine Urine Random 125.13 mg/dL
[2024-10-05 09:53] LABS: Collection Time Urine 24 Hours; Creatinine 24 Hour Urine 1752 mg/day (800-1800); Microalbumin 24 Hour Urine 60.2 mg/day (<30); Microalbumin Excretion Rate Ur 41.8 ug/min (<20); Microalbumin Urine Random 4.3 mg/dL (0-1.6); Total Volume Urine 1400 mL
== END ==
PROVIDERS: PCP Student in an Organized Health Care Education/Training Program; Referring Provider Student in an Organized Health Care Education/Training Program; Visit Provider Student in an Organized Health Care Education/Training Program
DX: K76.0 Fatty (change of) liver, not elsewhere classified (principal); E78.5 Hyperlipidemia, unspecified
CPT/HCPCS: 82043; 82570

== ENCOUNTER → 2025-01-17 09:55 | Outpatient (CLI) | payer MEDICARE, SELFPAY ==
--- NOTE | 2025-01-17 09:57 | DI.RAD.S_ITS ---
PROCEDURE: XR KNEE RT 3V INDICATIONS: knee pain TECHNIQUE: 3 views of the knee were acquired. COMPARISON: [facility], , XR KNEE RT 3V, 01/23/2022, 8:29. FINDINGS: Bones: No fractures or dislocations. No suspicious bony lesions. Moderate right knee medial patellofemoral compartment osteoarthritis with osseous hypertrophy and mild joint space narrowing. Mild right knee lateral compartment osteoarthritis with osseous hypertrophy. Soft tissues: No joint effusion. No suspicious soft tissue calcifications. IMPRESSION: Right knee osteoarthritis. Dictated by: Jenelle Westfall MD, PhD on 01/17/2025 at 11:15 Approved by: Jenelle Westfall MD, PhD on 01/17/2025 at 11:16
--- NOTE | 2025-01-17 09:57 | DI.RAD.S_ITS ---
PROCEDURE: XR KNEE LT 3V INDICATIONS: knee pain TECHNIQUE: 3 views of the knee were acquired. COMPARISON: None. FINDINGS: Bones: No fractures or dislocations. No suspicious bony lesions. Moderate left knee medial and patellofemoral compartment osteoarthritis with osseous hypertrophy and joint space narrowing. Mild left knee lateral compartment osteoarthritis with osseous hypertrophy. Soft tissues: No joint effusion. No suspicious soft tissue calcifications. IMPRESSION: Left knee osteoarthritis. Dictated by: Jenelle Westfall MD, PhD on 01/17/2025 at 11:14 Approved by: Jenelle Westfall MD, PhD on 01/17/2025 at 11:15
== END ==
PROVIDERS: PCP Student in an Organized Health Care Education/Training Program; Referring Provider Student in an Organized Health Care Education/Training Program; Visit Provider Student in an Organized Health Care Education/Training Program
DX: M25.561 Pain in right knee (principal); M25.562 Pain in left knee; M17.0 Bilateral primary osteoarthritis of knee
CPT/HCPCS: 73562

== ENCOUNTER → 2025-05-16 08:58 | Outpatient (CLI) | payer MEDICARE, SELFPAY ==
--- NOTE | 2025-05-16 09:00 | EKG_ITS ---
[address] [address] Test Date: 2025-05-16 Pat Name: Leeann Pires Department: [facility] Room: Gender: Female [employer]: NIDIA : 1960 Requested By: Order Number: [id number] Reading MD: Loco Adams Measurements Intervals [place] Rate: 58 P: 20 CA: 178 QRS: -25 QRSD: 102 T: 5 QT: 434 QTc: 426 Interpretive Statements Sinus bradycardia Minimal voltage criteria for LVH, may be normal variant ( Tim product ) Electronically Signed On 05-25-2025 13:47:39 PDT by Loco Adams
[2025-05-16 09:35] LABS: Add Manual Diff / Slide Review NO; Hematocrit 39.3 % (36-46); Hemoglobin 13.7 g/dL (12.0-16.0); Lymphocytes Absolute Auto 1800 /uL (1100-4500); Mean Corpuscular HGB Conc 35.0 % (30-36); Mean Corpuscular Hemoglobin 31.2 PG (26-34); Mean Corpuscular Volume 89.3 fL (80-100); Platelet Count 189 X10^3/uL (150-400)
[2025-05-16 09:47] LABS: Hemoglobin A1C% w Est Avg Glu 5.3 % (4.0-6.0)
[2025-05-16 10:07] LABS: Albumin 4.5 g/dL (3.5-5.0); Blood Urea Nitrogen 18 mg/dL (7-17); Calcium 9.5 mg/dL (8.4-10.2); Carbon Dioxide 25 mmol/L (22-32); Chloride 106 mmol/L (98-107); Estimated Glomerular Filt Rate > 60 mL/min (>60); Glucose 104 mg/dL (70-99); HEMOLYSIS < 15 (0-50); Potassium 5.0 mmol/L (3.4-5.1); Sodium 138 mmol/L (137-145)
[2025-05-16 10:14] LABS: Prealbumin 35.2 mg/dL (17.6-36.0)
[2025-05-16 10:24] LABS: Vitamin D 25 Hydroxy (D3) 46.4 ng/mL (30.0-100.0)
== END ==
PROVIDERS: PCP Student in an Organized Health Care Education/Training Program; Referring Provider Orthopaedic Surgery Adult Reconstructive Orthopaedic Surgery; Visit Provider Orthopaedic Surgery Adult Reconstructive Orthopaedic Surgery
DX: Z01.818 Encounter for other preprocedural examination (principal); Z01.812 Encounter for preprocedural laboratory examination
CPT/HCPCS: 36415; 80048; 82040; 82306; 83036; 84134; 85025; 93005

== ENCOUNTER 2025-08-27 10:29 | Day surgery (SDC) | payer MEDICARE, SELFPAY ==
[2025-08-23 12:41] VITALS: BMI 37.8
--- NOTE | 2025-08-27 07:47 | DI.RAD.S_ITS ---
PROCEDURE: XR KNEE RT 1TO2V
--- NOTE | 2025-08-27 10:57 | P.OP.PRE_ITS ---
Pre-operative Note
--- NOTE | 2025-08-27 10:57 | PM.PREOP ---
Pre-operative Note Interval Note History & Physical reviewed/Exam performed by Physician: Yes Changes to H&P: No
[2025-08-27] MEDS: LACTATED RINGERS 1,000 ML 100 ML IV (11:00)
[2025-08-27 11:02] VITALS: BP 152/95; PULSE 75; RESP 14; TEMP 36.7; O2SAT 98
[2025-08-27] MEDS: ACETAMINOPHEN 325 MG TABLET 975 MG PO (11:11)
[2025-08-27] MEDS: MELOXICAM 7.5 MG TABLET 15 MG PO (11:11)
[2025-08-27] MEDS: LACTATED RINGERS 1,000 ML 42 ML IV (11:12)
[2025-08-27] MEDS: TRANEXAMIC ACID 1,000 MG in SODIUM CHLORIDE 0.9% 100 ML 200 MG IV ×2 (12:28→13:42)
--- NOTE | 2025-08-27 12:51 | SUR.OPER ---
Supine on padded OR bed. Pillow under head, arms secured on padded armboards <90 degree abduction. Safety belt across torso. Non-operative leg secured with tape over blanket over lower leg. Operative leg secured in Ilya positioner. Foam padded brace at thigh of operative leg.
[2025-08-27] MEDS: KETOROLAC 30 MG/ML VIAL 15 MG INJ (12:57)
--- NOTE | 2025-08-27 13:47 | P.OP_ITS ---
Operative Date/Time/Diagnoses
--- NOTE | 2025-08-27 13:47 | PM.OP.1 ---
Operative Date/Time/Diagnoses Date of procedure: 08/27/25 Time of procedure: 12:00 Pre-op diagnosis: Right knee osteoarthritis Post-op diagnosis: same Procedure & Clinicians Procedure: Right total knee arthroplasty Same procedure(s) as scheduled: Yes Surgeon: Jason Deleon Assisted?: Yes Salesperson [employer]: Cuca Kilpatrick Anesthesia Type: Spinal, Sedation, Peripheral nerve block and Local Operative Notes Findings: Severe varus knee arthritis Applied: none Estimated Blood Loss (mL): 50 Tourniquet time (min): 42 Procedure in detail: Right Gap-Balanced Dom Persona Medial-Congruent Primary Total Knee Arthroplasty Implants: Size 9 Cruciate Retaining Femoral Component Size E Tibial Component Size 10 Medial Congruent Polyethylene Insert Unresurfaced Patella Procedure Summary: This 65-year-old female patient has a BMI of 37 and in order to limit the long-term risk of aseptic loosening I utilized uncemented fixation. Her bone quality was excellent supporting this fixation method. I cut the tibia in slight varus in order to minimize the need for soft tissue releases and had good balanced in extension after distal femoral and proximal tibial cuts. Femoral rotation balanced at 2? and all trials were appropriate prior to final component implantation. Procedure in Detail: This patient was seen preoperatively and evaluated for knee pain which was refractory to numerous nonoperative treatment modalities. Their pain correlated with radiographic changes demonstrating significant degeneration in the knee joint. The risks and benefits of continued nonoperative management versus operative management were discussed at length and all of the patient?s questions were answered. Additional educational materials providing further details beyond our discussion in clinic were provided via a publicly available patient education video which included the incidence of medical complications associated with total knee arthroplasty, reasons for revision following total knee arthroplasty, and patient satisfaction rates following total knee arthroplasty. With this understanding of the risks inherent to the procedure, the patient elected to move forward with operative management. Following preoperative optimization, the patient was scheduled for surgery. The patient was met in the preoperative holding area the day of the procedure and all questions were answered. The patient?s nares were swabbed in order to decolonize them from MRSA. Informed consent was signed and the right limb was marked with indelible ink.? The patient was brought back to the operating room where anesthesia was induced. The patient was transferred to the operating table and all bony prominences were padded. The operative site was prepped and draped in the usual sterile fashion. A second prep stick was utilized following drape placement. The incision was marked corresponding to the medial aspect of the tibial tubercle and the patella. Ioban was wrapped circumferentially around the knee. Prior to incision, tranexamic acid and cefazolin were administered. Templating images were displayed. A timeout procedure was performed verifying the patient?s identity, medical comorbidities, allergies, relevant medications, anesthesia type and the surgical plan. All present were in agreement. The assistance of a physician diver assistant was required for positioning, room setup, soft tissue retraction and wound closure. Without this assistance, the procedure would have been significantly more challenging and time consuming.?? The tourniquet was inflated prior to incision. I made an anterior incision over the knee, dissected through the subcutaneous tissues and identified the lateral border of the VMO. Medial and lateral soft tissue flaps were developed. A mid-vastus arthrotomy was performed ensuring that adequate capsular tissue would remain for closure at the conclusion of the procedure. The knee was brought into extension and the medial soft tissues were released off the joint line of the tibia. Tissue overlying the distal anterior femur was released to allow for later assessment for anterior notching but left in place. A portion of the retropatellar fat pad was excised while protecting the patellar tendon. The patella was everted. The patella was not resurfaced. Osteophytes were excised and a lateral facetectomy was performed. The patella was released from its everted position.?? I flexed the knee to 90 degrees and placed retractors to allow access to the notch. An opening reamer was used to gain access to the femoral canal and an intramedullary toy was introduced into the canal. Diaphyseal fit was obtained in order to plan a distal femoral resection at 5 degrees relative to the anatomic axis. A +0 resection was planned and assessed using an doris wing. I then made the cut using a sagittal saw. This provided additional access to the femoral notch. The ACL and PCL were excised. Retractors were placed on the lateral and medial tibia. I hyperflexed the knee while externally rotating it to sublux the tibia anteriorly. I placed a Susie retractor posteriorly and used this to provide additional anterior subluxation. The remainder of the PCL root was released. An extramedullary guide was positioned for a resection in slight varus. A +2 resection off the medial tibia was planned and the tibial cutting jig was pinned in place. I evaluated the depth, varus-valgus alignment and slope of the planned tibial resection prior to making the cut. I cut the tibia with a sagittal saw while using retractors to protect the MCL, patellar tendon, and posterolateral structures.? The knee was repositioned in extension and the Fuzion soft tissue balancing gauge was introduced. This demonstrated that there was equal tension in the medial and lateral compartments of the knee with the knee in full extension and no additional soft tissue releases were necessary. When 60 pounds of force was applied to the Fuzion device, the extension gap opened to 10 mm. I moved the knee into 90 degrees of flexion, and the Fuzion device was recalibrated by removing a 9 mm yvon to allow assessment of the flexion gap. The Fuzion block was placed perpendicular to the resected surface of the tibia and the resected surface of the distal femur. Sixty pounds of traction was applied to match the tension of the extension gap. This externally rotated the femur to 2 degrees. Pins were placed in the 10 mm holes. Appropriate sizing was determined and a 4-in-1 block was placed. This was double checked using the Fuzion device to ensure that it would open to an equal distance as the extension gap when the same amount of force was applied. The Fuzion block was also used to assess flexion gap symmetry. An doris wing was used to ensure there would be no anterior notching. Retractors were placed to protect the soft tissues during resection. Captured cuts were performed with a sagittal saw for the anterior and posterior femur as well as the corresponding chamfers.?A laminar proposal director and retractors were used to expose the posterior knee and the menisci and posterior osteophytes were removed. Trial components were placed and the construct was assessed. Range of motion was assessed by ensuring the knee could achieve full extension and assessing maximum passive knee flexion by elevating the femur and allowing the heel to passively fall towards the buttock. Gap symmetry was assessed by stressing the medial and lateral compartments in both extension and flexion. Laxity was assessed in both extension and flexion and the polyethylene trial was adjusted with shims as necessary. Patellar tracking was assessed with knee flexion. Once satisfied with the construct, I moved forward with implant insertion. Lug holes were drilled in the femur and the tibia was prepped ensuring appropriate sizing and rotation relative to the tibial tubercle.?? The bony ends were irrigated. A portion of the anterior chamfer cut was utilized as a to plug the hole from the intramedullary toy in the femur. I impacted the tibial component into place. The tibia was reduced underneath the femur. I placed the femoral component. I brought the knee into extension and manually pressurized the construct by pushing on the heel. The knee was bathed in a dilute mixture of betadine and peroxide. A mixture of Ropivacaine, Epinephrine and Toradol was infiltrated throughout the soft tissues into structures including the VMO, patellar tendon, quadriceps tendon, MCL and femoral periosteum. The knee was copiously irrigated with pulse lavage. The knee was again trialed. Range of motion was assessed by ensuring the knee could achieve full extension and assessing maximum passive knee flexion by elevating the femur and allowing the heel to passively fall towards the buttock. Gap symmetry was assessed by stressing the medial and lateral compartments in both extension and flexion. Laxity was assessed in both extension and flexion and the polyethylene trial was adjusted with shims as necessary. Patellar tracking was assessed with knee flexion. The tourniquet was let down and the polyethylene trial was removed. I inspected the knee inspected for any residual bleeding. Once hemostasis was achieved I inserted the final polyethylene and ensured appropriate engagement of the dovetail locking mechanism.?? The arthrotomy was closed with non-absorbable interrupted suture ensuring that this extended to the top of the arthrotomy. This was backed up with running barbed suture throughout the arthrotomy. The skin was closed with 2-0 and 3-0 sutures. Surgical glue was applied and a soft dressing was placed.?The sponge, instrument and needle counts were reported as being correct at the end of the case. The patient was transferred from the operating table back to a stretcher. The patient emerged from anesthesia without difficulty and was taken to the PACU in a stable condition.? Plan for aftercare: Weightbearing as tolerated Aspirin 81 twice per day for DVT prophylaxis Multimodal pain regimen with no IV opioids ordered Anticipate discharge home later today if we are able to get her a physical therapy session in time for discharge home today. She strongly desires to discharge home today Follow up at [facility] in 2 weeks for wound check Complications: none Post-operative Condition: stable Disposition: same day surgery
[2025-08-27 14:23] VITALS: BP 111/57; PULSE 82; RESP 18; TEMP 36.8; O2SAT 94
[2025-08-27 14:31] VITALS: BP 112/58; PULSE 80; RESP 13; TEMP 36.6; O2SAT 94
[2025-08-27 14:46] VITALS: BP 118/63; PULSE 82; RESP 18; TEMP 36.6; O2SAT 94
[2025-08-27 14:54] VITALS: BP 116/61; PULSE 79; RESP 16; TEMP 36.6; O2SAT 94
[2025-08-27 15:00] VITALS: BP 138/76; PULSE 80; RESP 16; O2SAT 96
--- NOTE | 2025-08-27 15:38 | PM.PN.IH.1 ---
Subjective Subjective Interval history: I came by to check on Leeann at approximately 3:00 p.m.. At that point in time her spinal anesthetic had just worn off. She had intact sciatic and femoral nerve function and her Marco wrap overlying her knee was clean dry and intact. She is eager to go home this evening and if we are able to get her a physical therapy session before all of the physical therapist have gone home we will attempt to discharge her this evening. Her pain is well-controlled at this point in time. Exam Vital Signs (past 8 hours): - 08/27/25 11:02 08/27/25 14:23 08/27/25 14:31 Temperature 98.1 F 98.2 F 98 F Pulse Rate 75 82 80 Respiratory Rate 14 18 13 Blood Pressure 152/95 H 111/57 L 112/58 L Pulse Oximetry 98 94 94 Oxygen Delivery Method Room Air Room Air Room Air 08/27/25 14:46 08/27/25 14:54 Temperature 97.8 F 97.8 F Pulse Rate 82 79 Respiratory Rate 18 16 Blood Pressure 118/63 116/61 Pulse Oximetry 94 94 Oxygen Delivery Method Room Air Room Air Oxygen Delivery Method Room Air Objective Labs Labs: Laboratory Results - last 24 hr 08/27/25 11:05 POC Whole Bld Glucose 90 PFSH Medical History (Updated 08/23/25 @ 12:42 by Kati Wells RN) High cholesterol (06/18/09) Hyperlipidemia (2009) Primary osteoarthritis of both knees NAFL (nonalcoholic fatty liver) Obesity 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 Hypertension Eczema (1989) Chicken pox Mumps Hayfever Asthma Anal fissure (1990) Surgical History (Updated 08/23/25 @ 12:42 by Kati Wells RN) [place] teeth removed (10/18/79) Anesthesia History of rectal surgery (1990) History of tonsillectomy (1965) Family History Brother Age: 71 Hypertension High cholesterol Mother Hypertension High cholesterol Stroke Sister Age: 73 Hypertension High cholesterol Sister Age: 69 Hypertension High cholesterol Sister Age: 68 Hypertension High cholesterol Sister Age: 64 Hypertension High cholesterol Sister Age: 63 Hypertension High cholesterol Sister Age: 62 Hypertension High cholesterol Father Alzheimer's disease Brother No problems noted. Grandfather No problems noted. Grandmother No problems noted. Grandfather No problems noted. Grandmother No problems noted. Social History household members: spouse Smoking Status: Former smoker second hand exposure: No alcohol intake: current substance use type: does not use Assessment & Plan Time-Based Coding :: [TOTAL MINUTES] spent with patient and on the chart (including review of chart, obtaining history, exam, reviewing outside data, placing orders, documenting exam and treatment plan, and counseling patient) on [DATE]. [employer] Document charge(s): No
--- NOTE | 2025-08-27 15:46 | SUR.PHASEII ---
1530 - Assisted to sitting on side of the bed. vss. bp 135/76, hr 78, sat 98% on RA. With 3 nurse assist, pt attempted to stand but was unable to bear wt on RLE or raise foot from the floor. Transfer orders recieved from ortho PA. Awaiting room assignment.
--- NOTE | 2025-08-27 16:23 | SUR.PHASEII ---
PT eval here. Pt tolerating full wt-bearing. ok'd for discharge
--- NOTE | 2025-08-27 16:40 | PT.IIE ---
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 Hayfever High cholesterol (06/18/09) Hyperlipidemia (2009) Hypertension [place] NAFL (nonalcoholic fatty liver) Obesity Primary osteoarthritis of both knees Physical Therapy Inpatient Evaluation/Re-Eval M1 PT IP Prior Functional Status Start: 08/27/25 15:33 Freq: NEEDED Status: Discharge Protocol: Document 08/27/25 16:32 SAK (Rec: 08/27/25 16:40 [facility] [id number]) Medical Review Prior Functional Status Medical History Yes Reviewed Diet/Fluid Regular Consistency Communication A and O x 4 Mobility and Gait indep Activities of Daily indep Living and IADL's Social History Household Members spouse Living Arrangements House Number of Floors ( Two Floors Floors) Number of Stairs To 6, 1 railing Enter/Railing? Home Environment Standard Height Toilet Home Equipment Front Wheel Walker M2 PT-IP Current Condition Start: 08/27/25 15:33 Freq: NEEDED Status: Discharge Protocol: Document 08/27/25 16:32 SAK (Rec: 08/27/25 16:40 [facility] [id number]) Physical Therapy Current Condition Current Condition Evaluation Date 08/27/25 Treatment Diagnosis s/p right TKA Onset Date 08/27/25 M3 PT-IP Subjective Start: 08/27/25 15:33 Freq: NEEDED Status: Discharge Protocol: Document 08/27/25 16:32 SAK (Rec: 08/27/25 16:40 [facility] [id number]) Subjective Physical Therapy Visit Type Type Initial Evaluation Visit Start Time 04:01 Visit Stop Time 04:24 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 at side. Hoping to go home today Therapy Pain Assessment Pain When Pain Assessed At Rest Pain Present Pain Present Pain Reported Location right knee Intensity 3 M4 PT-IP Mobility and Gait Start: 08/27/25 15:33 Freq: NEEDED Status: Discharge Protocol: Document 08/27/25 16:32 SAK (Rec: 08/27/25 16:40 [facility] [id number]) PT-Transfer Assessment Sit to and From Stand Sit to and from Contact Guard Assistance Stand Equipment Transfer Assistive Gait Belt,Front Wheeled Walker Device Transfer Ability Level of Assist Contact Guard Assistance Gait Assessment Gait Gait Assistance Contact Guard Assist Required: Distance (Feet) 12 Able to Maintain Yes Weight Bearing Status During Gait Assistive Devices Assistive Device Gait Belt,Front Wheeled Walker Gait Deviations General Gait Pattern Antalgic Factors Limiting Gait Function Factors Limiting Decreased Sensation,Decreased Strength,Pain Gait Function Comments Gait Comments No LOB, on one side, assisting at gait belt Stair Climbing Assessment Comments Stair Climbing verbal instruction patient and ; up with the Comments good, down with the bad PT-Balance Assessment Sitting Balance and Reactions Static Sitting Normal Balance Ability Standing Balance and Reactions Dynamic Standing Good Balance Ability Device Used FWW M5 PT-IP Objective Assessments Start: 08/27/25 15:33 Freq: NEEDED Status: Discharge Protocol: Document 08/27/25 16:32 SAK (Rec: 08/27/25 16:40 [facility] [id number]) Orientation Orientation/Cognition Orientation Name,Place,Situation Language Function No Deficits Noted Ability Safety Awareness Understands Safety Issues Memory Description No Deficits Noted Gross Range of Motion Upper Extremity ROM Assessment Within Functional Limits Lower Extremity ROM Assessment Within Functional Limits Strength Upper Extremity Strength Assessment Within Functional Limits Lower Extremity Strength Assessment Within Functional Limits Knee except right knee 3+/5 Coordination Assessment Gross Coordination Gross Coordination WNL Sensation Assessment Sensation Gross Sensation Right LE Impaired Sensation Paresthesia Description M6 PT-IP Treatment Start: 08/27/25 15:33 Freq: NEEDED Status: Discharge Protocol: Document 08/27/25 16:32 SAK (Rec: 08/27/25 16:40 [facility] [id number]) Physical Therapy Treatment Exercises Knee ROM Measurement verbal instruction using handout Education Education Provided Post-Op Packet,Safety Equipment Issued Equipment Type and Pt. has own walker, was fit to patient Company M7 PT-IP Assessment and Plan Start: 08/27/25 15:33 Freq: NEEDED Status: Discharge Protocol: Document 08/27/25 16:32 SAK (Rec: 08/27/25 16:40 [facility] [id number]) PT Summary Assessment and Plan Potential Rehabilitation Good Potential Status of Condition Evolving at Evaluation Summary Impairments Pain,ROM,Strength,Transfers,Gait Assessment Summary Pt. s/p right TKA today, seen for PT clearance for discharge home. at bedside, patient dressed, shoes on. Has antigravity strength right knee. Was instructed in mobility skills using walker including safety factors, use of UE's, safe use of walker, stair ambulation, and HEP. Instructed in importance of exercise, ice, elevation, pain control. Patient and demonstrated good understanding. Post-op packet issued. Patient ready for discharge, no further inpatient PT needs. Patient has OP PT scheduled. Frequency of Treatment Frequency Of Discharge Treatment Treatment Plan Other OP PT Recommendations and Next Treatment Focus Weight Bearing Status Weight Bearing Weight Bear as Tolerated Status Discharge Recommendations PT Discharge Outpatient PT Recommendations Transportation Needs Private Vehicle at Discharge
== END 2025-08-27 16:26 | disposition home or self-care (01) ==
PROVIDERS: Family Provider Student in an Organized Health Care Education/Training Program; PCP Student in an Organized Health Care Education/Training Program; Referring Provider Orthopaedic Surgery Adult Reconstructive Orthopaedic Surgery; Visit Provider Orthopaedic Surgery Adult Reconstructive Orthopaedic Surgery
PROC: 0SRC0JZ Replacement of Right Knee Joint with Synthetic Substitute, Open Approach (ICD-10-PCS; CPT 27447; principal; 2025-08-27 13:00)
DX: M17.11 Unilateral primary osteoarthritis, right knee (principal); J45.909 Unspecified asthma, uncomplicated; M25.761 Osteophyte, right knee
CPT/HCPCS: 27447; 73560; 82962; 97161; C1776; C1713; J0687; J1100; J1885; J2250; J2405; J2704; J3010; J7050; J7120